=== PATIENT | male | born 1990 | race Caucasian/White ===

== ENCOUNTER 2019-07-01 15:54 | Emergency (ER) | payer SELFPAY ==
[2019-07-01] MEDS ORDERED: Labetalol 100 MG/20 ML MDV IVPUSH ONE ×3 (16:37→19:06)
[2019-07-01] MEDS ORDERED: Sodium Chloride 0.9% 10 ML Syringe FLUSH PRN (16:37)
[2019-07-01] MEDS ORDERED: Potassium Chloride 20 MEQ Tab.ER PO ONE (18:02)
--- NOTE | 2019-07-01 18:59 | EDM.PDOC ---
ED HPI GENERAL MEDICAL PROBLEM - General Chief Complaint: Cardiovascular Problem Stated Complaint: HIGH BP Time Seen by Provider: 07/01/19 16:11 Source of Information: Reports: Patient, RN Notes Reviewed - History of Present Illness INITIAL COMMENTS - FREE TEXT/NARRATIVE: 28-year-old male has been sent here from [facility] with regard to elevated blood pressure. He went to the clinic with concerns about cough sore throat congestion that has been going on for many days. His BP was extremely high at the clinic and was imediately referred here to the ED. He states the throat discomfort has actually gotten somewhat better over the last couple of days. He has had some chills but no obvious fever. He does have history of hypertension. He was on medication about 3 years ago but then did not follow through on that and has not been taking medication for at least the last couple of years. He does check his pressure occasionally at home and it has usually been in the 130s over 90s and therefore he has not been worried about that. Did have headache a couple of days ago but no headache today. No abdominal pain, chest pain nausea or vomiting. He does have frequent nonproductive cough. No wheezing or difficulty breathing. Throat Pain Score (Numeric/FACES): 5 - Related Data Allergies Allergy/AdvReac Type Severity Reaction Status Date / Time amoxicillin Allergy Cannot Verified 07/01/19 16:12 Remember Home Meds: Home Meds Lisinopril/Hydrochlorothiazide [Lisinopril-Hctz 10-12.5 mg Tab] 1 each PO DAILY #10 tablet 07/01/19 [Rx] Past Medical History Cardiovascular History: Reports: Hypertension Social & Family History - Tobacco Use Smoking Status *Q: Never Smoker - Caffeine Use Caffeine Use: Reports: Soda Other Caffeine Use: [employer], pepsi- drinks a few daily - Recreational Drug Use Recreational Drug Use: No ED ROS GENERAL - Review of Systems Review Of Systems: See Below Constitutional: Reports: Chills. Denies: Fever HEENT: Reports: Throat Pain (Now better) Respiratory: Reports: Cough, Sputum. Denies: Shortness of Breath, Wheezing Cardiovascular: Reports: Chest Pain (With coughing, now better) GI/Abdominal: Reports: Decreased Appetite. Denies: Nausea, Vomiting Musculoskeletal: Denies: Shoulder Pain, Arm Pain, Back Pain Skin: Reports: No Symptoms Neurological: Reports: Headache (Several days ago, now gone). Denies: Numbness , Tingling, Trouble Speaking, Weakness ED EXAM, GENERAL - Physical Exam Exam: See Below General Appearance: Alert, No Apparent Distress Eye Exam: Bilateral Eye: PERRL Throat/Mouth: Normal Inspection, Normal Oropharynx Head: No: Facial Swelling Neck: Supple Respiratory/Chest: No Respiratory Distress, Lungs Clear, Normal Breath Sounds Cardiovascular: Regular Rate, Rhythm GI/Abdominal: Soft, Non-Tender Back Exam: No: CVA Tenderness (L), CVA Tenderness (R) Extremities: No: Pedal Edema, Leg Pain, Increased Warmth, Redness Neurological: Alert, Oriented, No Motor/Sensory Deficits Skin Exam: Warm, Dry, Normal Color Course - Vital Signs Last Recorded V/S: Last Vital Signs Temp 99.2 F 07/01/19 16:07 Pulse 108 H 07/01/19 16:07 Resp BP 181/102 H 07/01/19 19:27 Pulse Ox - Orders/Labs/Meds Orders: Active Orders 24 hr Category Date Time Status Peripheral IV Care [RC] . DIRECTED Care 07/01/19 16:37 Active CXR [Chest 2V] [CR] Stat Exams 07/01/19 18:03 Taken Sodium Chloride 0.9% [Saline Flush] Med 07/01/19 16:37 Active 10 ml FLUSH ASDIRECTED PRN Peripheral IV Insertion Adult [OM.PC] Stat Oth 07/01/19 16:37 Ordered Medication Orders Sodium Chloride (Saline Flush) 10 ml FLUSH ASDIRECTED PRN PRN Reason: Keep Vein Open Last Admin: 07/01/19 17:11 Dose: 10 ml Labs: Laboratory Tests 07/01/19 07/01/19 Range/Units 17:00 17:00 WBC 18.02 H (4.23-9.07) K/mm3 RBC 6.00 (4.63-6.08) M/mm3 Hgb 17.8 H (13.7-17.5) gm/dl Hct 50.6 (40.1-51.0) % MCV 84.3 (79.0-92.2) fl MCH 29.7 (25.7-32.2) pg MCHC 35.2 (32.2-35.5) g/dl RDW Std Deviation 40.7 (35.1-43.9) fL Plt Count 241 (163-337) K/mm3 MPV 8.5 L (9.4-12.3) fl Neut % (Auto) 81.6 H (34.0-67.9) % Lymph % (Auto) 10.1 L (21.8-53.1) % [place] % (Auto) 7.4 (5.3-12.2) % Eos % (Auto) 0.6 L (0.8-7.0) Baso % (Auto) 0.1 (0.1-1.2) % Neut # (Auto) 14.71 H (1.78-5.38) K/mm3 Lymph # (Auto) 1.82 (1.32-3.57) K/mm3 [place] # (Auto) 1.33 H (0.30-0.82) K/mm3 Eos # (Auto) 0.10 (0.04-0.54) K/mm3 Baso # (Auto) 0.02 (0.01-0.08) K/mm3 Manual Slide Review Abnormal smear Sodium 136 (136-145) mEq/L Potassium 3.0 L (3.5-5.1) mEq/L Chloride 97 L (98-107) mEq/L Carbon Dioxide 23 (21-32) mEq/L Anion Gap 19.0 H (5-15) BUN 9 (7-18) mg/dL Creatinine 1.0 (0.7-1.3) mg/dL Est Cr Clr Drug Dosing 127.87 mL/min Estimated GFR (MDRD) > 60 (>60) mL/min BUN/Creatinine Ratio 9.0 L (14-18) Glucose 93 (74-106) mg/dL Calcium 9.6 (8.5-10.1) mg/dL Total Bilirubin 1.0 (0.2-1.0) mg/dL AST 19 (15-37) U/L ALT 31 (16-63) U/L Alkaline Phosphatase 121 H (46-116) U/L Total Protein 8.7 H (6.4-8.2) g/dl Albumin 4.0 (3.4-5.0) g/dl Globulin 4.7 gm/dL Albumin/Globulin Ratio 0.9 L (1-2) Meds: Medications Generic Name Dose Route Start Last Admin Trade Name Javierq PRN Reason Stop Dose Admin Sodium Chloride 10 ml 07/01/19 16:37 07/01/19 17:11 Saline Flush FLUSH 10 ml ASDIRECTED PRN Administration Keep Vein Open Discontinued Medications Generic Name Dose Route Start Last Admin Trade Name Javierq PRN Reason Stop Dose Admin Labetalol HCl 20 mg 07/01/19 16:37 07/01/19 17:12 Normodyne IVPUSH 07/01/19 16:38 20 mg ONETIME ONE Administration Protocol Labetalol HCl 20 mg 07/01/19 18:02 07/01/19 18:34 Normodyne IVPUSH 07/01/19 18:03 20 mg ONETIME ONE Administration Protocol Labetalol HCl 20 mg 07/01/19 19:06 07/01/19 19:27 Normodyne IVPUSH 07/01/19 19:07 20 mg ONETIME ONE Administration Protocol Lisinopril 20 mg 07/01/19 19:17 07/01/19 19:27 Prinivil PO 07/01/19 19:18 20 mg ONETIME ONE Administration Potassium Chloride 40 meq 07/01/19 18:02 07/01/19 18:42 Klor-Con M20 PO 07/01/19 18:03 40 meq ONETIME ONE Administration - Re-Assessments/Exams Free Text/Narrative Re-Assessment/Exam: 07/01/19 19:36 Initial BP was 254/137, follow up 236/140. Patient has been given multiple doses of labetalol IV. His white blood count was elevated at 18,000, other labs were mostly OK, potassium was low at 3.0. He was given potassium 40 mEq by mouth. His blood pressure did come down with multiple doses of labetalol and did fluctuate quite a lot but trended lower from initial very high levels. He also has been taking OTC cough decongestant meds which also may be contributing to his current hypertension. Patient did feel much better at time of discharge. X-ray was done did not show any sign of infiltrate. Am going to start him on lisinopril HCTZ 10/12.5 daily. Discharge instr. as documented. Departure - Departure Time of Disposition: 19:21 Disposition: Home, Self-Care 01 Condition: Fair Clinical Impression: Hypertension, Upper respiratory infection Prescriptions: Lisinopril/Hydrochlorothiazide [Lisinopril-Hctz 10-12.5 mg Tab] 1 each PO DAILY #10 tablet Referrals: PCP,None [Primary Care Provider] - Forms: ED Department Discharge Additional Instructions: Avoid salty foods, try eat a cardiac healthy diet, [facility] website has some good guidelines available for review. Avoid salty foods. Lisinopril/HCTZ as prescribed once daily with your next dose tomorrow morning. Prescription has been sent electronic to [place] [facility] mcdonald at the [employer] [facility]. Follow -up [facility] Friday afternoon as planned. Check your blood pressure and heart rate 2-3 times a day, keep a record and bring that record with you for your next clinic appointment. Your chest x-ray this evening looked fine. Symptoms of your upper respiratory infection should start getting better day by day. Vaporizer or steam as needed. Stop the cough medication that you have been taking. Return to ED as needed. Your potassium was low at 3.0. Bananas, other fruit and vegetables are high in potassium so try get plenty of those in your diet. Sepsis Event Note - Evaluation Sepsis Screening Result: No Definite Risk - Focused Exam Vital Signs: Vital Signs Temp Pulse BP BP 07/01/19 19:27 181/102 H 07/01/19 18:36 206/107 H 07/01/19 17:56 196/106 H 07/01/19 16:07 99.2 F 108 H 254/137 H Date Exam was Performed: 07/01/19 Time Exam was Performed: 19:30 - My Orders Last 24 Hours: My Active Orders 07/01/19 16:37 Peripheral IV Care [RC] . DIRECTED Sodium Chloride 0.9% [Saline Flush] 10 ml FLUSH ASDIRECTED PRN Peripheral IV Insertion Adult [OM.PC] Stat 07/01/19 18:03 CXR [Chest 2V] [CR] Stat - Assessment/Plan Last 24 Hours: My Active Orders 07/01/19 16:37 Peripheral IV Care [RC] . DIRECTED Sodium Chloride 0.9% [Saline Flush] 10 ml FLUSH ASDIRECTED PRN Peripheral IV Insertion Adult [OM.PC] Stat 07/01/19 18:03 CXR [Chest 2V] [CR] Stat
[2019-07-01] MEDS ORDERED: Lisinopril 10 MG Tab PO ONE (19:17)
--- NOTE | 2019-07-02 07:36 | CR ---
Chest: Two views of the chest were obtained. Comparison: No prior chest imaging. Heart size and mediastinum are normal. Lungs are clear with no acute parenchymal change. Bony structures are unremarkable. Impression: 1. Nothing acute is appreciated on two-view chest x-ray. Diagnostic code #1 This report was dictated in [place] Standard Time
== END 2019-07-01 19:40 | disposition home or self-care (01) ==
LOC: JD.ED 15:54
DX: I10 Essential (primary) hypertension (principal); J06.9 Acute upper respiratory infection, unspecified; Z88.1 Allergy status to other antibiotic agents
CPT/HCPCS: 36415; 71046; 80053; 85025; 96374; 96376; 99283; A9270; J3490